=== PATIENT | male | born 1965 | race Caucasian/White ===

== ENCOUNTER 2016-11-26 15:45 | Emergency (ER) | payer SELFPAY ==
[~2016-11-26] VITALS: Ht 170.2 cm; Wt 65.9 kg
[2016-11-26 16:14] VITALS: BP 128/78
== END 2016-11-26 16:18 | disposition home or self-care (01) ==
LOC: EMS 15:47
DX: F20.9 Schizophrenia, unspecified (principal); F31.9 Bipolar disorder, unspecified; E11.9 Type 2 diabetes mellitus without complications
CPT/HCPCS: 99284